=== PATIENT | female | born 1955 | race African-American/Black ===

== ENCOUNTER 2018-02-28 11:51 | Emergency (ER) | payer OTHER ==
[~2018-02-28] VITALS: Ht 162.6 cm; Wt 76.4 kg
[~2018-02-28 11:51] MED LIST: ACYC200L PO; ASPI1CPM8 PO; ATOR40TA28 PO; CANA100T PO; HYDR-309 PO; INSNOV SQ; INSU100V12 SQ; LEVO100T13 PO; METF-446 PO; METO25TA6 PO; PANT20TA12 PO; percocet
[2018-02-28] MEDS ORDERED: KETOROLAC TROMETHAMINE 60 MG/2 ML VIAL IM ONE (12:45)
[2018-02-28] MEDS ORDERED: OxyCODONE HCL/ACETAMINOPHEN 5-325 MG TABLET PO ONE (13:15)
[2018-02-28 14:07] VITALS: BP 130/84
== END 2018-02-28 14:10 | disposition home or self-care (01) ==
LOC: EMS 11:54
DX: S82.831A Other fracture of upper and lower end of right fibula, initial encounter for closed fracture (principal); S93.421A Sprain of deltoid ligament of right ankle, initial encounter; I10 Essential (primary) hypertension; E03.9 Hypothyroidism, unspecified; I25.2 Old myocardial infarction; F17.210 Nicotine dependence, cigarettes, uncomplicated; Z98.890 Other specified postprocedural states; Z86.73 Personal history of transient ischemic attack (TIA), and cerebral infarction without residual deficits; Z79.891 Long term (current) use of opiate analgesic; Z79.4 Long term (current) use of insulin; Z79.899 Other long term (current) drug therapy; X50.1XXA Overexertion from prolonged static or awkward postures, initial encounter; Y93.89 Activity, other specified; Y92.89 Other specified places as the place of occurrence of the external cause; Y99.8 Other external cause status
CPT/HCPCS: 29515; 73610; 96372; 99284; J1885